=== PATIENT | female | born 1960 | race Caucasian/White ===

== ENCOUNTER 2022-08-31 17:44 | Emergency (ER) | payer OTHER, SELFPAY ==
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
[2022-08-31 18:01] VITALS: BP 131/93; PULSE 70; RESP 20; TEMP 37.4; O2SAT 100
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
== END 2022-08-31 19:58 | disposition home or self-care (01) ==
PROVIDERS: Emergency Provider Registered Nurse
DX: M54.2 Cervicalgia (principal); R51.9 Headache, unspecified; V43.53XA Car driver injured in collision with pick-up truck in traffic accident, initial encounter
CPT/HCPCS: 72040; 99213; G0463